=== PATIENT | male | born 1945 | race Caucasian/White ===

== ENCOUNTER 2021-05-07 04:40 | Emergency (ER) | payer BC, MEDICARE ==
[2021-05-07] MEDS ORDERED: Sodium Chloride 0.9% 10 ML Syringe FLUSH PRN (04:57)
[2021-05-07] MEDS ORDERED: Sodium Chloride 0.9% 1,000 ML IV SCH (05:00)
[2021-05-07] MEDS ORDERED: HYDROmorphone 1 MG/ML Syringe IVPUSH ONE (05:07)
[2021-05-07] MEDS ORDERED: Ondansetron 4 MG/2 ML SDV IVPUSH ONE (05:07)
--- NOTE | 2021-05-07 05:12 | EDM.PDOC ---
ED HPI GENERAL MEDICAL PROBLEM - General Chief Complaint: Abdominal Pain Stated Complaint: ABDOMINAL PAIN Time Seen by Provider: 05/07/21 04:55 Source of Information: Reports: Patient History Limitations: Reports: No Limitations - History of Present Illness INITIAL COMMENTS - FREE TEXT/NARRATIVE: Ron is a 76-year-old male from [place], [place] who presents to the ED for evaluation of acute onset of left-sided abdominal pain. Patient states he felt like he was constipated earlier today and has had 2-3 bowel movements since midnight. He states that after the first bowel movement the pain became much more severe. He is complaining of the pain is about a 9-10 out of 10 at this time and is in the left upper quadrant radiating through to the back. He did describe diaphoresis and some nausea but did not vomit. He denies any fever. He has experienced this pain before due to his back, however, it is never been this severe. He normally sees a chiropractor for his back pain. He denies any history of kidney stones. left side abd pain Pain Score (Numeric/FACES): 9 - Related Data Allergies Allergy/AdvReac Type Severity Reaction Status Date / Time No Known Allergies Allergy Verified 05/07/21 05:13 Home Meds: Home Meds Glimepiride [Amaryl] 1 mg PO BEDTIME 05/07/21 [History] Hydrocodone/Acetaminophen [Hydrocodon-Acetaminophen 5-325] 1 each PO Q4H PRN #10 tablet 05/07/21 [Rx] Levothyroxine [Synthroid] 50 mg PO DAILY 05/07/21 [History] Metoprolol Tartrate [Lopressor] 25 mg PO BID 05/07/21 [History] Rivaroxaban [Xarelto] 10 mg PO BEDTIME 05/07/21 [History] amLODIPine [Norvasc] 5 mg PO BEDTIME 05/07/21 [History] atorvaSTATin [Lipitor] 40 mg PO BEDTIME 05/07/21 [History] ondansetron HCL [Zofran] 4 mg PO TID PRN #10 tablet 05/07/21 [Rx] ED ROS GENERAL - Review of Systems Review Of Systems: See Below Constitutional: Reports: Diaphoresis HEENT: Reports: No Symptoms Respiratory: Reports: No Symptoms Cardiovascular: Reports: No Symptoms Endocrine: Reports: No Symptoms GI/Abdominal: Reports: Abdominal Pain (Left-sided abdominal pain predominantly in the left upper quadrant), Constipation, Nausea : Reports: No Symptoms Musculoskeletal: Reports: Back Pain (History of chronic back pain) Skin: Reports: No Symptoms Neurological: Reports: No Symptoms Psychiatric: Reports: No Symptoms Hematologic/Lymphatic: Reports: No Symptoms Immunologic: Reports: No Symptoms ED EXAM, GI/ABD - Physical Exam Exam: See Below Exam Limited By: No Limitations General Appearance: Alert, Anxious, Moderate Distress Eyes: Bilateral: EOMI Throat/Mouth: Normal Inspection, Normal Oropharynx, Normal Voice, No Airway Compromise Head: Atraumatic, Normocephalic Neck: Normal Inspection, Supple Respiratory/Chest: No Respiratory Distress, Lungs Clear, Normal Breath Sounds Cardiovascular: Normal Peripheral Pulses, Regular Rate, Rhythm, No Murmur GI/Abdominal Exam: Soft, No Distention, Tender (Left upper quadrant), Abnormal Bowel Sounds (Decreased bowel sounds). No: Guarding, Rigid, Rebound Extremities: Normal Inspection Neurological: Alert, Oriented, Normal Cognition, No Motor/Sensory Deficits Psychiatric: Normal Affect, Normal Mood Skin Exam: Warm, Dry, Intact, Normal Color Lymphatic: No Adenopathy Course - Vital Signs Last Recorded V/S: Last Vital Signs Temp 36.1 C 05/07/21 05:24 Pulse 70 05/07/21 05:24 Resp 22 H 05/07/21 05:24 BP 120/70 05/07/21 05:24 Pulse Ox 97 05/07/21 05:24 - Orders/Labs/Meds Orders: Active Orders 24 hr Category Date Time Status Abdomen Pelvis wo Cont [CT] Stat Exams 05/07/21 05:07 Ordered UA W/MICROSCOPIC [URIN] Stat Lab 05/07/21 04:57 Ordered Sodium Chloride 0.9% [Normal Saline] 1,000 ml Med 05/07/21 05:00 Ordered IV ASDIRECTED Sodium Chloride 0.9% [Saline Flush] Med 05/07/21 04:57 Ordered 10 ml FLUSH ASDIRECTED PRN Saline Lock Insert [OM.PC] Routine Oth 05/07/21 04:57 Ordered Medication Orders Sodium Chloride (Normal Saline) 1,000 mls @ 500 mls/hr IV ASDIRECTED FRANKLIN Last Admin: 05/07/21 05:04 Dose: 500 mls/hr Documented by: VANESSA Sodium Chloride (Sodium Chloride 0.9% 10 Ml Syringe) 10 ml FLUSH ASDIRECTED PRN PRN Reason: Keep Vein Open Last Admin: 05/07/21 05:05 Dose: 10 ml Documented by: VANESSA Labs: Laboratory Tests 05/07/21 05/07/21 Range/Units 05:03 05:03 WBC 13.4 H (4.5-11.0) K/uL RBC 4.65 (4.30-5.90) M/uL Hgb 13.6 (12.0-15.0) g/dL Hct 42.6 (40.0-54.0) % MCV 92 (80-98) fL MCH 29 (27-31) pg MCHC 32 (32-36) % Plt Count 151 (150-400) K/uL Neut % (Auto) 77.3 H (36-66) % Lymph % (Auto) 15.6 L (24-44) % [place] % (Auto) 5.9 (2-6) % Eos % (Auto) 0.9 L (2-4) % Baso % (Auto) 0.3 (0-1) % Sodium 141 (140-148) mmol/L Potassium 4.5 (3.6-5.2) mmol/L Chloride 105 (100-108) mmol/L Carbon Dioxide 25 (21-32) mmol/L Anion Gap 10.6 (5.0-14.0) mmol/L BUN 26 H (7-18) mg/dL Creatinine 1.5 H (0.8-1.3) mg/dL Est Cr Clr Drug Dosing 48.09 mL/min Estimated GFR (MDRD) 46 L (>60) Glucose 210 H (74-106) mg/dL Calcium 9.0 (8.5-10.1) mg/dL Total Bilirubin 0.6 (0.2-1.0) mg/dL AST 19 (15-37) U/L ALT 32 (12-78) U/L Alkaline Phosphatase 70 (46-116) U/L C-Reactive Protein < 0.05 (0.0-0.3) mg/dL Total Protein 7.1 (6.4-8.2) g/dL Albumin 3.3 L (3.4-5.0) g/dL Globulin 3.8 H (2.3-3.5) g/dL Albumin/Globulin Ratio 0.9 L (1.2-2.2) Meds: Medications Generic Name Dose Route Start Last Admin Trade Name Myla PRN Reason Stop Dose Admin Sodium Chloride 1,000 mls @ 500 mls/hr 05/07/21 05:00 05/07/21 05:04 Normal Saline IV 500 mls/hr ASDIRECTED FRANKLIN Administration Sodium Chloride 10 ml 05/07/21 04:57 05/07/21 05:05 Sodium Chloride 0.9% 10 Ml Syringe FLUSH 10 ml ASDIRECTED PRN Administration Keep Vein Open Discontinued Medications Generic Name Dose Route Start Last Admin Trade Name Myla PRN Reason Stop Dose Admin Hydromorphone HCl 1 mg 05/07/21 05:07 05/07/21 05:23 Hydromorphone 1 Mg/Ml Syringe IVPUSH 05/07/21 05:08 1 mg ONETIME ONE Administration Ondansetron HCl 4 mg 05/07/21 05:07 05/07/21 05:23 Ondansetron 4 Mg/2 Ml Sdv IVPUSH 05/07/21 05:08 4 mg ONETIME ONE Administration - Radiology Interpretation Free Text/Narrative:: I reviewed the CT of the abdomen and pelvis without contrast demonstrating significant diverticulosis throughout the sigmoid colon. A fair amount of stool within the colon without evidence for obstruction. He also has a 4.3 mm stone in the distal left ureter. He has very ectatic looking kidneys bilaterally. There is mild hydronephrosis and hydroureter. - Re-Assessments/Exams Free Text/Narrative Re-Assessment/Exam: 05/07/21 05:40 I reviewed the patient's labs his CBC showing a leukocytosis at 13.4, a hemoglobin of 13.6, hematocrit of 42.6 and a platelet count of 151,000. His comprehensive metabolic panel is remarkable for a BUN of 26 and a creatinine 1.5. His glucose is elevated at 210. Patient does take glimepiride 1 mg at night. The patient C-reactive protein is less than 0.05. Urinalysis shows 75-100 RBCs but no WBCs. There is no evidence for infection. The patient was given a liter of IV normal saline, Dilaudid 1 mg IV push and Zofran 4 mg IV push for his abdominal pain and nausea. 05/07/21 05:[address] of the abdomen and pelvis without contrast. He has significant diverticulosis without the sigmoid colon without evidence for acute diverticulitis. The patient does have ureterolithiasis with a stone measuring 4.3 mm in the distal left ureter approximately 5 cm above the ureterovesicular junction. There is mild hydroureter and hydronephrosis. The kidneys look very ectatic bilaterally right worse than left. No other stones are seen throughout the exam. Would fit with what the patient is complaining of symptoms with the ureterolithiasis likely causing his left flank and back pain. There is evidence for mild constipation on the CT. My plan is to put the patient to put him on [place] 5/325 mg 1 tablet every 4 hours as needed for moderate to severe pain related to his kidney stone dispensing a total of 10 tablets. 05/07/21 07:39 urinalysis was negative for infection. Patient is suitable for discharge home in satisfactory condition. Departure - Departure Time of Disposition: 07:39 Disposition: Home, Self-Care 01 Clinical Impression: Calcium ureterolithiasis, Renal colic on left side - Discharge Information Instructions: Kidney Stones, [id number], Renal Colic, [id number] Referrals: PCP,Unknown [Primary Care Provider] - Forms: ED Department Discharge Care Plan Goals: Your work-up today has shown that you also have a small 3 mm kidney stone that is descending down your left ureter causing left-sided kidney pain. I want you to drink at least 10 ounces of water every hour you are awake for the next week to help keep urine production high. We are going to put you on hydrocodone which is a potent pain reliever to use for moderate to severe pain and I would like you to take Tylenol or ibuprofen for mild to moderate pain. This will likely pass in the next day or 2. The garcia to helping pass the kidney stone is to make sure that you are making plenty of urine. Sepsis Event Note (ED) - Focused Exam Vital Signs: Vital Signs Temp Pulse Resp BP Pulse Ox 05/07/21 05:24 36.1 C 70 22 H 120/70 97 05/07/21 05:22 36.1 C 70 22 H 120/70 97 - Problem List & Annotations (1) Calcium ureterolithiasis SNOMED Code(s): 20548972 Code(s): N20.1 - CALCULUS OF URETER Status: Acute Priority: High Current Visit: Yes (2) Renal colic on left side SNOMED Code(s): 7598109 Code(s): N23 - UNSPECIFIED RENAL COLIC Status: Acute Priority: High Current Visit: Yes - Problem List Review Problem List Initiated/Reviewed/Updated: Yes - My Orders Last 24 Hours: My Active Orders 05/07/21 04:57 UA W/MICROSCOPIC [URIN] Stat Sodium Chloride 0.9% [Saline Flush] 10 ml FLUSH ASDIRECTED PRN Saline Lock Insert [OM.PC] Routine 05/07/21 05:00 Sodium Chloride 0.9% [Normal Saline] 1,000 ml IV ASDIRECTED 05/07/21 05:07 Abdomen Pelvis wo Cont [CT] Stat - Assessment/Plan Last 24 Hours: My Active Orders 05/07/21 04:57 UA W/MICROSCOPIC [URIN] Stat Sodium Chloride 0.9% [Saline Flush] 10 ml FLUSH ASDIRECTED PRN Saline Lock Insert [OM.PC] Routine 05/07/21 05:00 Sodium Chloride 0.9% [Normal Saline] 1,000 ml IV ASDIRECTED 05/07/21 05:07 Abdomen Pelvis wo Cont [CT] Stat
--- NOTE | 2021-05-07 06:09 | CRLCT ---
For Patients: As a result of the Century Cures Act, medical imaging exams and procedure reports are released immediately into your electronic medical record. You may view this report before your referring provider. If you have questions, please contact your health care provider. Indication: Left-sided abdominal pain Technique: Volumetric multidetector CT images of the abdomen and pelvis were without the administration of intravenous contrast. Comparison: None available. Findings: The lung bases are clear. The liver is normal in attenuation without intrahepatic biliary ductal dilatation. There is a large gallstone seen within the central gallbladder lumen otherwise there is no evidence of pericholecystic fluid. There is no significant common biliary ductal dilatation or abrupt cut off. The spleen is normal in attenuation and size. The stomach and duodenum are grossly unremarkable. The pancreas is normal in attenuation without significant atrophy. The adrenal glands are unremarkable. There are cystic changes of the kidneys with left-sided hydronephrosis and hydroureter with a 4.3 millimeter calculus in the distal left ureter. There is a [id number] amount of stool with moderate colonic diverticulosis without evidence of diverticulitis. There are dilated bowel loops seen within the central abdomen. The appendix is not visualized. There is no significant mesenteric, retroperitoneal, or pelvic sidewall lymph nodes. The aorta is nonaneurysmal. There is no significant atherosclerotic disease appreciated. The solid pelvic viscera are grossly unremarkable. There is no free fluid or free air. There is mild diastasis of the rectus musculature with mild ventral abdominal bulging. The lumbar vertebral body heights are grossly maintained with mild to moderate degenerative change without evidence of acute osseous abnormality. Impression: 4.3 millimeter calculus seen in the distal left ureter with associated left-sided hydronephrosis and hydroureter. Please note that all CT scans at this facility use dose modulation, iterative reconstruction, and/or weight-based dosing when appropriate to reduce radiation dose to as low as reasonably achievable. Dictated by Mario Cheung MD @ 05/07/2021 6:07:[address] Mario Cheung @ May 07 2021 6:07AM
== END 2021-05-07 07:54 | disposition home or self-care (01) ==
LOC: JP.ED 04:40
DX: N13.2 Hydronephrosis with renal and ureteral calculous obstruction (principal); Z79.01 Long term (current) use of anticoagulants; Z79.899 Other long term (current) drug therapy
CPT/HCPCS: 36415; 74176; 80053; 81001; 85025; 86140; 96374; 96375; 99284; 99284-25; J1170; J2405; J7030